=== PATIENT | female | born 1945 | race Caucasian/White ===

== ENCOUNTER 2017-02-22 08:13 | Day surgery (SDC) | payer MEDICARE ==
--- NOTE | 2017-02-21 14:49 | HP ---
DATE OF CLINIC: 02/16/2017 NIKA KUMAR : 1945 PLANNED PROCEDURE: Right Knee Arthroscopy with Debridement of Chondral Flap DATE OF SURGERY: February 22, 2017 SURGEON: Cornell Young M.D. HISTORY OF PRESENT ILLNESS Nika Kumar is a 71 year old female. * Medication list reviewed with patient allergy list reviewed with patient. * Tried NSAIDS Ibuprofen prn * Has not tried Physical Therapy * Has not tried Injections This is a 71-year-old female who is here to discuss right knee pain. She has had ongoing pain since September of 2016 that she localizes to the posterior lateral portion of her knee. It is when her knee is in maximal flexion and she states that it gets to about 8/10. She has tried ice and anti-inflammatories without adequate relief of her symptoms. She is not had any physical therapy or injections and is not interested in pursuing injections at this time. Since she does not had any discrete trauma history, but just notes that that has been going on for about 4 to 5 months. It is limiting her ability to do activities as desired and she is interested in pursuing interventions to return her to her baseline activities. After discussion and review of treatment options, both operative and non-operative, she has elected to proceed with surgery and presents today preoperatively. PAST MEDICAL AND SURGICAL HISTORY: Her past medical surgical history are noncontributory, they are as documented in the chart, no change since previously seen by Isacc Graham. CURRENT MEDICATION * Flovent HFA 44 MCG/ACT Aerosol 2 puffs twice a day w/ spacer, 30 days, 4 refills * Multiple Vitamins Tablet 1 once a day 0 days, 0 refills * ProAir HFA 108 (90 Base) MCG/ACT Aerosol Solution 1 to 2 puffs every 4 to 6 hours prn, 30 days, 2 refills * Ventolin HFA 108 (90 Base) MCG/ACT AERS, as directed 1-2 puffs q 4-6 hrs prn SOB/wheeze, 30 days, 3 refills PAST MEDICAL/SURGICAL HISTORY Reported: Last mammogram date: 2008 and Last colonoscopy date: 1999. Medical: History of Arthritis and Asthma. Surgical / Procedural: Cholecystectomy 1994 and Back Surgery Lower back 2000. Exposure: Exposure to an upper respiratory infection. Diagnoses: Pneumonia 10/17- tx as outpt Asthma. Irritable bowel syndrome chronic, intermittent LBP. Fibromyalgia Surgical: * Laparoscopic cholecystectomy * Hysterectomy 1979 * Back surgery 10/12 Lumbar fusion SOCIAL HISTORY Behavioral: Caffeine use drinks 1 cup of coffee every day and non-smoker quit smoking. Smoking status: Former smoker. Work: Occupation retired. ALLERGIES * Levothyroxine Reaction: Skin Rashes/Hives, throat swelling REVIEW OF SYSTEMS No recent constitutional symptoms to include fevers and chills. No recent cardiovascular symptoms to include chest pain or palpitations. No recent respiratory symptoms to include shortness of breath or recent infections. PHYSICAL FINDINGS * Vitals taken 02/16/2017 11:58 am BP-Sitting L 98/57 mmHg BP Cuff Size Regular Pulse Rate-Sitting 74 bpm Temp-Oral 97.9 F Height 67.5 in Weight 146 lbs Body Mass Index 22.5 kg/m2 Body Surface Area 1.78 m2 Pain Level 2 Ears, Nose, Throat: * ENT: normal. Lungs: * Clear to auscultation. Cardiovascular: Heart Rate and Rhythm: * Normal. Abdomen: * Normal. Neurological: Motor: * Dominant Hand = Right Hand. Patient is a well-developed, well-nourished female in no acute distress. They are awake, alert and conversant throughout the encounter. CARDIOVASCULAR: Intact peripheral pulses on bilateral lower extremities. No significant edema on inspection of bilateral lower extremities. NEUROLOGIC: Patient had intact coordinated composite motion of the bilateral lower extremities and sensation intact to light touch in all distributions of bilateral lower extremities. PSYCHIATRIC: Patient was oriented to person, place and time and displayed appropriate mood and affect during the encounter. SKIN: Exam of the skin on bilateral lower extremities showed no significant scars, lesions, rashes or masses. FOCUSED MUSCULOSKELETAL EXAM: The patient is ambulating without significant antalgia. She has normal resting station of the hips, knees and ankles. Her right knee she was very minimal effusion. No erythema or ecchymosis. She is tender to palpation posterior laterally. She also has tenderness as she goes into maximal flexion of about 120 degrees. She is stable to varus and valgus stress at 0 and 30. She can get her knee into full extension and she can perform a straight leg raise. Her patella is midline. She has a negative patella grind. She has a negative anterior and posterior drawer and a negative Troy. Teodoro's only reproduces her symptoms when she goes into maximal flexion but not as she is moving back toward extension. She has a warm and well perfused leg distally with intact sensation and a normal resting tone. TESTS * Test: BASIC METABOLIC PROFILE Report Date: 02/16/2017 BUN 18 mg/dL BUN/CREAT RATIO 26 High CALCIUM 9.4 mg/dL GLUCOSE 92 mg/dL CREATININE 0.7 mg/dL SODIUM 138 meq/L POTASSIUM 4.0 meq/L CHLORIDE 102 meq/L CARBON DIOXIDE 32 meq/L High ANION GAP 8 meq/L GFR 83 * Test: CBC NO DIFF Report Date: 02/16/2017 WBC 8.5 10*3/mL RBC 3.89 10*6/uL Low MCH 31.1 pg High MCHC 33.3 g/dL RDW 12.7 % MCV 93.3 fL PLATELET COUNT 190 10*3/mL HCT 36.3 % Low HGB 12.1 g/L IMAGING: Review of her x-rays shows no fractures or dislocations. She has some mild medial and patellofemoral compartment the narrowing consistent with mild osteoarthritis. MRI shows a 7 mm chondral defect in the posterior lateral femoral condyle with some question of a possible chondral flap in that area that would explain her symptoms. Menisci appear to be intact. ASSESSMENT A 71-year-old female with a right knee lateral femoral condyle chondral injury. THERAPY * Patient fall risk screen negative. * Patient eligible for fall risk assessment. * Patient received fall risk assessment. PLAN * Oth meniscus derangements, unsp lateral meniscus, right knee Percocet 5-325 MG TABS, Take 1-2 tablets every 4 hours as needed for pain, 14 days, 0 refills * Knee Arthroscopy (Right) with debridement of chondral flap CARE TEAM Carol Ann Solis MD Family Practice SURGICAL CONSENT We have discussed surgical options including right knee arthroscopic debridement of chondral flap and non-operative management. The patient was counseled in detail regarding the diagnosis, treatment options available, prognosis of each treatment option and the potential risks and complications. The risks of surgery include, but are not limited to, anesthetic , neurovascular complications, pulmonary embolism, deep vein thrombosis, wound dehiscence, failure of any or all of the discussed procedures, infection of the joint or surrounding soft tissue, need for revision surgery, chronic pain, limitations in activities of daily living, inability to return to work, and loss of normal range of motion or functional use of the extremity. There is the possibility of failure over time that may require additional operative or non-operative treatment. The patient acknowledged that there are a number of perioperative risks not mentioned here and would still like to proceed. The patient is aware of and understands these risks, and wishes to proceed with the proposed surgical procedure and other procedures as indicated at the time of surgery. We will have the patient see their PCP for a preoperative medical risk assessment. The preoperative instructions were reviewed with the patient and all questions were answered. PB/sg
[2017-02-22] MEDS ORDERED: CEFAZOLIN SODIUM 2 GRAM PREMIX 100 ML IV PRN (08:15)
[2017-02-22] MEDS ORDERED: LACTATED RINGERS 1,000 ML ONE (08:17)
[2017-02-22] MEDS ORDERED: CEFAZOLIN SODIUM 2 GRAM PREMIX 100 ML IV ONE (08:17)
[2017-02-22] MEDS ORDERED: IV START KIT ONE (08:17)
[2017-02-22] MEDS ORDERED: FENTANYL 100 MCG/2 ML VIAL ONE ×2 (08:45→10:16)
[2017-02-22] MEDS ORDERED: MIDAZOLAM HCL 1 MG/ML 2ML VIAL ONE (08:45)
[2017-02-22] MEDS ORDERED: ONDANSETRON 4 MG/2ML 2 ML VIAL ONE (08:45)
[2017-02-22] MEDS ORDERED: DEXAMETHASONE SOD PHOS 4 MG/1 ML VIAL ONE (08:45)
[2017-02-22] MEDS ORDERED: PROPOFOL 20 ML IV ONE (08:45)
[2017-02-22] MEDS ORDERED: BUPIVACAINE 0.5% W/EPI SDV 30 ML VIAL ONE (09:35)
[2017-02-22] MEDS ORDERED: NALOXONE HCL 0.4 MG/ML VIAL IV PRN (09:41)
[2017-02-22] MEDS ORDERED: PROMETHAZINE HCL 25 MG/ML VIAL IM PRN (09:41)
[2017-02-22] MEDS ORDERED: ATROPINE SULFATE 0.4 MG/1 ML VIAL IV PRN (09:41)
[2017-02-22] MEDS ORDERED: HYDROMORPHONE HCL 1 MG/ML SYRINGE IV PRN ×2 (09:41→11:01)
[2017-02-22] MEDS ORDERED: ONDANSETRON 4 MG/2ML 2 ML VIAL IV PRN ×2 (09:41→11:01)
[2017-02-22] MEDS ORDERED: HYDRALAZINE HCL 20 MG/1 ML VIAL IV PRN (09:41)
[2017-02-22] MEDS ORDERED: MEPERIDINE 25 MG/ML SYRINGE IV PRN (09:41)
[2017-02-22] MEDS ORDERED: LABETALOL HCL 5 MG/ML 20ML VIAL IV PRN (09:41)
[2017-02-22] MEDS ORDERED: FENTANYL 100 MCG/2 ML VIAL IV PRN (09:41)
[2017-02-22] MEDS ORDERED: LACTATED RINGERS 1,000 ML IV SCH ×2 (09:45→11:01)
[2017-02-22] MEDS ORDERED: EPHEDRINE SULFATE UD SYR 25 MG 25 MG/5 ML SYRINGE IV ONE (10:08)
[2017-02-22] MEDS ORDERED: KETOROLAC TROMETHAMINE 30 MG/ML 1 ML VIAL ONE (10:26)
--- NOTE | 2017-02-22 10:41 | PCMBPN ---
Brief Post Op Note: Date of Procedure: 02/22/17 Start Time: 1000 Preoperative Diagnosis: 1. Right Knee MMT/OA Postoperative Diagnosis: 1. Same Procedure: Right Knee Arthroscopy/PMM Surgeon: Cornell Young MD Assist:DINORA Roldan Anesthesia: Tito Chandler CRNA Findings: See above Condition: Stable Complications: None IV Fluids: 800 mLs of LR Urine Output: 0 mLs Estimated Blood Loss: 5 mLs Tourniquet Time: 17 min at 250mmHg Specimens: N/A Implants: None Drains: [N/A]
[2017-02-22] MEDS ORDERED: ACETAMINOPHEN 325 MG TABLET PO PRN (11:01)
[2017-02-22] MEDS ORDERED: DIPHENHYDRAMINE HCL 50 MG/1 ML VIAL IV PRN (11:01)
[2017-02-22] MEDS ORDERED: OXYCODONE/ACETAMINOPHEN 5/325 MG TABLET PO PRN (11:01)
[2017-02-22] MEDS ORDERED: OXYCODONE/ACETAMINOPHEN 5/325 MG TABLET ONE (12:08)
--- NOTE | 2017-02-22 13:29 | OP ---
Helen GUARDADO : 1945 [id number] DATE OF PROCEDURE: February 22, 2017 PREOPERATIVE DIAGNOSES: Right knee chondral injury, medial meniscus tear and osteoarthritis. POSTOPERATIVE DIAGNOSES: Right knee chondral injury, medial meniscus tear and osteoarthritis. PROCEDURE PERFORMED: RIGHT KNEE ARTHROSCOPY WITH PARTIAL MEDIAL MENISCECTOMY AND DEBRIDEMENT. SURGEON: Cornell Young M.D. DIAMOND MERCHANT: Samir Gilman P.A.-C. ANESTHESIA: Dat Chandler C.R.N.A. SPECIMENS: No material was sent to the laboratory. ESTIMATED BLOOD LOSS: 5 mL FLUIDS REPLACED: 800 mL of crystalloid. TOURNIQUET TIME: 17 minutes at 250 mmHg. URINE OUTPUT: None. IMPLANTS: None. DRAINS: No drains. INDICATIONS: This is a 71-year-old female who complains of pain and mechanical symptoms in the right knee that have been increasing over time and have not responded to a course of nonoperative measures. Patient has an exam and imaging studies which are consistent with the above. Given failure to improve with nonoperative measures patient was consented for right knee arthroscopy with partial medial meniscectomy and debridement. The risks, benefits and alternatives were discussed at length with that patient and they elected to proceed with surgery. Informed consent was obtained and documented in the chart and the patient was placed on the schedule the first available convenience. DESCRIPTION OF PROCEDURE: The patient was identified in the preoperative holding area where they were marked with an indelible marker by the operating surgeon. Patient was taken to the operating room where they were placed in the supine position the operating room table. A general anesthesia was induced, perioperative antibiotics were administered and a well padded pre-calibrated nonsterile tourniquet was placed on the right upper thigh. Patient was prepped and draped in the usual sterile fashion for surgery. An operative time out was performed and confirmed by all members of the operative team confirming the patient identity, procedure to be performed and the laterally for that procedure. All necessary personnel, equipment and implants were in place and there were no safety concerns. The leg was elevated and exsanguinated using the Esmarch bandage and the tourniquet was inflated to 250 mmHg. A standard lateral portal was created and the 30 degree viewing arthroscope was inserted into the knee. Optics were directed anteromedially and a medial portal was localized and created in a standard fashion. A probe was inserted through this medial portal and used in completion of the diagnostic arthroscopy with the following findings: The patient had significant grade 2 and 3 chondral wear over the medial femoral condyle. She had a complex tear of the medial meniscus. She had intact ACL and PCL. The lateral compartment was largely intact. No lateral meniscus tear was identified. The patellofemoral joint showed some grade 2 and 3 changes. She had extensive hypertrophy of her anterior fat pad. She had several adhesions and synovial bands in her suprapatellar pouch. No discrete loose bodies were identified. After completion of diagnostic arthroscopy the probe was exchanged for an arthroscopic resector shaver which is used to complete a partial medial meniscectomy and then to perform a debridement of her hypertrophic anterior fat pad as well as several of these synovial bands in the suprapatellar pouch in order to restore were normal joint volume. At this point we felt that we had addressed the patient's intra-articular pathology and so the camera and instruments were removed from the knee. The portal sites were closed with #4-0 Nylons; 20 mL of 0.5% Marcaine was injected into the knee for perioperative analgesia. A sterile dressing of Xeroform, fluffs, ABDs, web roll and then an ARINA bandage from ankle to the thigh was applied. The tourniquet was deflated, the drapes were removed. The patient was awakened from anesthesia and extubated in the operating room without difficulty. Patient was transferred to a stretcher and taken postoperatively to the post anesthesia care unit in stable condition. There were no observed intraoperative complications during this procedure. Job [id number] Cc: [facility]
== END 2017-02-22 16:28 | disposition home or self-care (01) ==
LOC: SDC 08:13
PROVIDERS: ATTEND Orthopaedic Surgery
PROC: 0SBC4ZZ Excision of Right Knee Joint, Percutaneous Endoscopic Approach (ICD-10-PCS; principal; 2017-02-22)
DX: M23.203 Derangement of unspecified medial meniscus due to old tear or injury, right knee (principal); M94.261 Chondromalacia, right knee; M79.4 Hypertrophy of (infrapatellar) fat pad; M17.11 Unilateral primary osteoarthritis, right knee; J45.909 Unspecified asthma, uncomplicated; M79.7 Fibromyalgia; Z87.01 Personal history of pneumonia (recurrent); Z87.891 Personal history of nicotine dependence; Z88.8 Allergy status to other drugs, medicaments and biological substances; Z79.899 Other long term (current) drug therapy
CPT/HCPCS: 29881; J3010; J1100; A9270; J1885; J2250; J2405; J7120; J0690